=== PATIENT | male | born 1965 | race Caucasian/White ===

== ENCOUNTER 2021-06-04 13:38 | Observation (INO) ==
[2021-06-04 17:19] LABS: Basophils % 0.3 %; Hematocrit 39.4 % (37.5-50.1); Hemoglobin 14.2 g/dL (12.9-16.9); Immature Granulocytes % 0.4 % (0-4); Lymphocytes # 0.6 K/mcL (0.6-4.6); Lymphocytes % 4.3 %; Mean Corpuscular Hemoglobin 35.1 pg (28.0-33.3); Mean Corpuscular Volume 97.5 fL (83.0-100.0); Mean Platelet Volume 9.8 fL (9.4-12.4); Monocytes # 0.9 K/mcL (0.0-1.3); Monocytes % 6.4 %; Neutrophils # 12.3 K/mcL (1.6-8.9); Platelet Count 189 K/mcL (140-400); Red Blood Count 4.04 M/mcL (4.19-5.50); Segmented Neutrophils % 88.6 %; White Blood Count 13.9 K/mcL (4.3-11.1)
[2021-06-04 17:36] LABS: BUN/Creatinine Ratio 11 (6-26); Blood Urea Nitrogen 8 mg/dL (6-20); Calcium 9.6 mg/dL (8.6-10.3); Carbon Dioxide 23 mEq/L (23-29); Chloride 96 mEq/L (98-107); Glucose 95 mg/dL (70-105); Osmolality,Calculated 264 (280-300); Potassium 4.2 mEq/L (3.5-5.1); Sodium 128 mEq/L (136-145); eGFR For African Americans > 60 (> 60); eGFR For Non-African Americans > 60 (> 60)
[2021-06-04] MEDS ORDERED: *HR* HYDROcodone/Acet 5/325 mg TABLET PO PRN (17:42)
[2021-06-04] MEDS ORDERED: *HR* OxyCODONE Immed Rel 5 MG TABLET PO PRN (17:42)
[2021-06-04] MEDS ORDERED: Ondansetron 4 MG/2 ML VIAL IVP PRN (17:42)
[2021-06-04] MEDS ORDERED: Acetaminophen 325 MG TABLET PO PRN (17:42)
[2021-06-04] MEDS ORDERED: 0.9 % Sodium Chloride 1,000 ML IVC ONE (17:42)
[2021-06-04] MEDS ORDERED: Naloxone 0.4 MG/ML INJ IVP PRN (17:42)
[2021-06-04] MEDS ORDERED: Ringers Solution, Lactated 1,000 ML IVC SCH (17:45)
[2021-06-04] MEDS ORDERED: levoFLOXacin 750 MG/150 ML 750 MG/150 ML BAG IVPB ONE ×2 (17:45→19:00)
[2021-06-04] MEDS: 0.9 % Sodium Chloride 1,000 ML IVC SCH (20:30)
[2021-06-05 03:47] LABS: Basophils % 0.2 %; Hematocrit 36.3 % (37.5-50.1); Immature Granulocytes % 0.4 % (0-4); Lymphocytes # 0.5 K/mcL (0.6-4.6); Lymphocytes % 5.6 %; Mean Corpuscular HGB Conc 34.7 g/dL (31.6-35.5); Mean Corpuscular Hemoglobin 34.1 pg (28.0-33.3); Mean Corpuscular Volume 98.4 fL (83.0-100.0); Monocytes # 1.1 K/mcL (0.0-1.3); Monocytes % 11.1 %; Neutrophils # 7.9 K/mcL (1.6-8.9); Platelet Count 173 K/mcL (140-400); Red Blood Count 3.69 M/mcL (4.19-5.50); Red Cell Distribution Width 13.1 % (11.5-14.5); Segmented Neutrophils % 82.7 %; White Blood Count 9.6 K/mcL (4.3-11.1)
[2021-06-05 03:51] LABS: Hemoglobin 12.6 g/dL (12.9-16.9)
[2021-06-05 03:57] LABS: INR 1.2; Prothrombin Time 13.4 Seconds (9.4-12.1)
[2021-06-05 04:00] LABS: Activated Partial Thrombo Time 30.9 Seconds (26.0-36.0)
[2021-06-05 04:07] LABS: BUN/Creatinine Ratio 13 (6-26); Blood Urea Nitrogen 8 mg/dL (6-20); C-Reactive Protein 122 mg/L (Less than 10); Calcium 8.6 mg/dL (8.6-10.3); Carbon Dioxide 21 mEq/L (23-29); Chloride 100 mEq/L (98-107); Glucose 93 mg/dL (70-105); Magnesium 1.9 mg/dL (1.6-2.6); Osmolality,Calculated 266 (280-300); Phosphorous 2.8 mg/dL (2.7-4.5); Sodium 129 mEq/L (136-145); eGFR For African Americans > 60 (> 60); eGFR For Non-African Americans > 60 (> 60)
[2021-06-05] MEDS: *HR* Enoxaparin 40 MG/0.4 ML SYRINGE SQ SCH (05:52)
[2021-06-05] MEDS: 0.9 % Sodium Chloride 1,000 ML IVC SCH (07:28)
[2021-06-05] MEDS: amLODIPine 5 MG TABLET PO SCH (17:09)
[2021-06-05] MEDS ORDERED: levoFLOXacin 750 MG/150 ML 750 MG/150 ML BAG IVPB SCH (20:00)
[2021-06-05] MEDS: Sulfamethoxazole/Trimeth DS 1 EACH TABLET PO SCH (20:03)
[2021-06-06 04:42] LABS: Basophils % 0.6 %; Eosinophils % 0.6 %; Hematocrit 36.4 % (37.5-50.1); Hemoglobin 13.2 g/dL (12.9-16.9); Immature Granulocytes % 0.4 % (0-4); Lymphocytes # 0.9 K/mcL (0.6-4.6); Mean Corpuscular HGB Conc 36.3 g/dL (31.6-35.5); Mean Corpuscular Hemoglobin 35.6 pg (28.0-33.3); Mean Corpuscular Volume 98.1 fL (83.0-100.0); Mean Platelet Volume 10.3 fL (9.4-12.4); Monocytes % 14.6 %; Neutrophils # 4.8 K/mcL (1.6-8.9); Platelet Count 198 K/mcL (140-400); Red Blood Count 3.71 M/mcL (4.19-5.50); Segmented Neutrophils % 70.8 %; White Blood Count 6.8 K/mcL (4.3-11.1)
[2021-06-06 05:08] LABS: BUN/Creatinine Ratio 13 (6-26); Blood Urea Nitrogen 8 mg/dL (6-20); Carbon Dioxide 21 mEq/L (23-29); Chloride 104 mEq/L (98-107); Glucose 105 mg/dL (70-105); Osmolality,Calculated 273 (280-300); Sodium 132 mEq/L (136-145); eGFR For African Americans > 60 (> 60); eGFR For Non-African Americans > 60 (> 60)
[2021-06-06] MEDS: *HR* Enoxaparin 40 MG/0.4 ML SYRINGE SQ SCH (05:20)
[2021-06-06] MEDS: amLODIPine 5 MG TABLET PO SCH (09:47)
[2021-06-06] MEDS: Sulfamethoxazole/Trimeth DS 1 EACH TABLET PO SCH (09:47)
[2021-06-06 10:27] VITALS: BP 144/73; PULSE 69; TEMP 98.5; O2SAT 99
[2021-06-06] MEDS ORDERED: Vancomycin 1,500 MG/265 ML IV.SOLN IVPB SCH (15:00)
== END 2021-06-06 11:30 | disposition home or self-care (01) ==
LOC: 3ANU 13:38 → EMEROOARM 13:38 → SUATTDRO 18:20 → 3ANU 19:41
PROVIDERS: ADMIT Internal Medicine; ATTEND General Practice